=== PATIENT | female | born 1985 | race Caucasian/White ===

== ENCOUNTER → 2018-01-10 | Outpatient (CLI) | payer BC ==
[2018-01-10 13:34] LABS: HCT 33.7 % (34.0-46.0); MCHC 35.7 g/dL (31.0-37.0); MCV 92.3 fL (80.0-100.0); Mean Platelet Volume 6.8; Platelet Count 238 k/uL (150-450); RBC 3.65 m/uL (3.80-5.40); RDW 13.4 % (11.5-15.5); WBC 9.6 k/uL (3.8-10.6)
== END | disposition home or self-care (01) ==
LOC: LABWHC1 11:52
PROVIDERS: ATTEND Obstetrics & Gynecology
DX: Z34.81 Encounter for supervision of other normal pregnancy, first trimester (principal)
CPT/HCPCS: 36415; 82565; 82947; 85027; 86762; 86780; 86850; 86900; 86901; 87340

== ENCOUNTER → 2018-04-21 | Outpatient (CLI) | payer BC ==
[2018-04-21 09:51] LABS: HCT 27.6 % (34.0-46.0); HGB 9.2 gm/dL (11.4-16.0); MCH 31.6 pg (25.0-35.0); MCHC 33.4 g/dL (31.0-37.0); MCV 94.7 fL (80.0-100.0); Mean Platelet Volume 7.3; Platelet Count 214 k/uL (150-450); RBC 2.91 m/uL (3.80-5.40); RDW 12.5 % (11.5-15.5); WBC 8.1 k/uL (3.8-10.6)
[2018-04-21 17:41] LABS: T4, Free (Free Thyroxine) 0.9 ng/dL (0.80-1.80)
== END | disposition home or self-care (01) ==
LOC: LABWHC1 08:21
PROVIDERS: ATTEND Obstetrics & Gynecology
DX: Z34.82 Encounter for supervision of other normal pregnancy, second trimester (principal)
CPT/HCPCS: 36415; 82950; 84439; 84443; 85027

== ENCOUNTER 2018-07-17 22:39 | Inpatient (IN) | payer BC ==
[2018-07-17] MEDS: LACTATED RINGERS 1,000 ML IV SCH (23:17)
[2018-07-17] MEDS ORDERED: LIDOCAINE 0.5% (PF) 5 MG/ML (50 ML SDV) SQ PRN (23:21)
[2018-07-17] MEDS ORDERED: CARBOPROST TROMETHAMINE 250 MCG/ML 1 ML AMP IM PRN (23:21)
[2018-07-17] MEDS ORDERED: OXYTOCIN 10 UNIT/ML 1 ML VIAL IM PRN (23:21)
[2018-07-17] MEDS ORDERED: TERBUTALINE 1 MG/ML VIAL SQ PRN (23:21)
[2018-07-17] MEDS ORDERED: METHYLERGONOVINE 0.2 MG/ML 1 ML AMP IM PRN (23:21)
[2018-07-17 23:31] VITALS: BMI 26.9
[2018-07-17 23:38] LABS: Basophils % (A) 0 %; Eosinophils # (A) 0.1 k/uL (0-0.7); Eosinophils % (A) 1 %; HCT 30.6 % (34.0-46.0); HGB 10.3 gm/dL (11.4-16.0); Lymphocytes # (A) 1.8 k/uL (1.0-4.8); Lymphocytes % (A) 19 %; MCH 29.9 pg (25.0-35.0); MCHC 33.5 g/dL (31.0-37.0); MCV 89.4 fL (80.0-100.0); Mean Platelet Volume 7.7; Monocytes # (A) 0.7 k/uL (0-1.0); Monocytes % (A) 7 %; Neutrophils # (A) 6.6 k/uL (1.3-7.7); Neutrophils % (A) 70 %; Platelet Count 225 k/uL (150-450); RBC 3.43 m/uL (3.80-5.40); RDW 14.1 % (11.5-15.5); WBC 9.4 k/uL (3.8-10.6)
[2018-07-17] MEDS ORDERED: ROPIVACAINE 5MG/ML 20ML VIAL ONE (23:48)
[2018-07-17] MEDS ORDERED: SODIUM CHLORIDE 0.9% 100 ML BAG ONE (23:48)
[2018-07-17] MEDS ORDERED: fentaNYL (PF) 50 MCG/ML 5 ML AMP ONE (23:48)
--- NOTE | 2018-07-18 01:09 | P.HPOB ---
History of Present Illness H&P Date: 07/18/18 Chief Complaint: Contractions This is a 32-year-old female 4 para 2 with a estimated date of confinement of 07/11/2018, estimated gestational age of 41 weeks, who presents to labor and delivery with complaints of contractions that began last night about 8 PM. She denies any rupture of membranes. care has been with Dr. Tse and has been uncomplicated per patient. labs: GC//Trichomonas-negative Random glucose-81 Hepatitis B surface antigen-negative nonreactive Rubella-immune Syphilis antibody-nonreactive Hemoglobin-12 Blood type-O+ Antibody screen-negative Obstetrical ultrasound-normal anatomy One hour Glucola-101 Group B streptococcus-negative Obstetrical history: . History of 2 vaginal deliveries at term. History of 1 miscarriage. Gynecologic history: History of a cryocautery in 2006 for abnormal Pap smear. Review of Systems Constitutional: Denies chills, Denies fever Eyes: denies blurred vision, denies pain Ears, nose, mouth and throat: Denies headache, Denies sore throat Cardiovascular: Denies chest pain, Denies shortness of breath Respiratory: Denies cough Gastrointestinal: Reports abdominal pain (Irregular contractions) Genitourinary: Reports pelvic pain, Reports Musculoskeletal: Reports low back pain Integumentary: Denies pruritus, Denies rash Neurological: Denies numbness, Denies weakness Psychiatric: Denies anxiety, Denies depression Past Medical History Past Medical History: No Reported History History of Any Multi-Drug Resistant Organisms: None Reported Past Surgical History: Tonsillectomy Additional Past Surgical History / Comment(s): D&C Past Anesthesia/Blood Transfusion Reactions: No Reported Reaction Past Psychological History: No Psychological Hx Reported Smoking Status: Never smoker Past Alcohol Use History: None Reported Past Drug Use History: None Reported - Past Family History Father Family Medical History: Hypertension Medications and Allergies Home Medications Medication Instructions Recorded Confirmed Type Iron 18 mg PO DAILY 08/06/15 08/07/15 History Nbr-Dbgn-Nekpv Acid 1 cap PO DAILY 08/06/15 08/07/15 History [-U Capsule] Allergies Allergy/AdvReac Type Severity Reaction Status Date / Time Sulfa (Sulfonamide Allergy Rash/Hives Verified 07/17/18 23:21 Antibiotics) Exam Osteopathic Statement: *. No significant issues noted on an osteopathic structural exam other than those noted in the History and Physical/Consult. Vital Signs Temp Pulse Resp BP Pulse Ox 07/17/18 23:27 97.4 F L 93 16 124/74 99 Intake and Output 07/17/18 07/17/18 07/18/18 14:59 22:59 06:59 Other: Weight 68.946 kg HEENT: Within normal limits Heart: Regular rate and rhythm Lungs: Clear to auscultation bilaterally Abdomen: Cervix: Initially in triage-4-5 cm/80%/-2 station heart tones: Reactive, category 1 Contractions: Every 1-3 minutes Extremities: Negative Homans Results Result Diagrams: 07/17/18 23:20 Abnormal Lab Results - Last 24 Hours (Table) 07/17/18 Range/Units 23:20 RBC 3.43 L (3.80-5.40) m/uL Hgb 10.3 L (11.4-16.0) gm/dL Hct 30.6 L (34.0-46.0) % Assessment and Plan (1) Post term , 41 weeks Current Visit: Yes Status: Acute Code(s): O48.0 - POST-TERM ; Z3A.41 - 41 WEEKS GESTATION OF SNOMED Code(s): 409980380 Plan: Admission for active labor. Epidural anesthesia. Expectant management.
[2018-07-18] MEDS: LACTATED RINGERS 1,000 ML IV SCH (01:13)
[2018-07-18] MEDS ORDERED: SIMETHICONE 80 MG CHEWABLE PO PRN (02:45)
[2018-07-18] MEDS ORDERED: ZOLPIDEM 5 MG TAB PO PRN (02:45)
[2018-07-18] MEDS ORDERED: OXYTOCIN 20 UNITS/1000 ML NS 1,000 ML IV SCH (02:45)
[2018-07-18] MEDS ORDERED: diphenhydrAMINE 50 MG/ML 1 ML VIAL IVP PRN ×2 (02:45)
[2018-07-18] MEDS ORDERED: LANOLIN CREAM 5 GM TUBE TOPICAL PRN (02:45)
[2018-07-18] MEDS ORDERED: BENZOCAINE/MENTHOL SPRAY 1 GM/SPRAY AEROSOL TOPICAL PRN (02:45)
[2018-07-18] MEDS ORDERED: HYDROCORTISONE 2.5% RECTAL CREAM 30 GM TUBE RECTAL PRN (02:45)
[2018-07-18] MEDS ORDERED: diphenhydrAMINE 50 MG CAP PO PRN (02:45)
[2018-07-18] MEDS ORDERED: diphenhydrAMINE 25 MG CAP PO PRN (02:45)
[2018-07-18] MEDS ORDERED: WITCH HAZEL 1 EACH MED..PAD TOPICAL PRN (02:45)
[2018-07-18] MEDS: IBUPROFEN 600 MG TAB PO PRN ×4 (05:51→23:33)
[2018-07-18] MEDS: ACETAMINOPHEN TAB 325 MG TAB PO PRN ×3 (08:09→19:47)
[2018-07-18] MEDS: SENNOSIDES-DOCUSATE SODIUM 1 EACH TAB PO SCH ×2 (08:10→22:07)
--- NOTE | 2018-07-18 08:34 | P.PROBDLV ---
Vaginal Delivery Note - . Vaginal Delivery Note: The patient progressed to complete dilation after artificial rupture of membranes with meconium noted. She did receive epidural anesthesia. Once reaching complete, she began pushing. Shortly after starting to push, the heart tones dropped into the 80s and 90s. She was repositioned to her sides in between pushing and given O2. Her epidural was turned off and she was encouraged to continue pushing during contractions. She brought the infant's head to a crown. With one further push, the 's head delivered across the perineum followed by the anterior shoulder. Nose and mouth were bulb suctioned at the perineum. No nuchal cord was noted. With one remaining push, the remainder the infant easily delivered and was placed on mother's abdomen. Cord was clamped and cut and was taken to warmer for evaluation. A viable female was noted with scores of 9 at 1 minute and 9 at 5 minutes and infant weight of 8 lbs. 13 oz. Placenta delivered shortly thereafter, intact, with a three-vessel cord. Cord blood also was obtained due to O+ blood type. Uterus contracted fairly well after oxytocin was given and uterine massage was carried out. Inspection of the perineum revealed a second-degree perineal laceration. This area was anesthetized with 1% lidocaine and then sutured with 3-0 and 2-0 Vicryl suture in the usual multilayer fashion. Estimated blood loss is approximately 200 mL's. Both mother and are in stable condition.
[2018-07-19 00:29] VITALS: PULSE 81; RESP 16
[2018-07-19] MEDS: ACETAMINOPHEN TAB 325 MG TAB PO PRN ×2 (01:56→07:47)
[2018-07-19] MEDS: IBUPROFEN 600 MG TAB PO PRN (05:48)
[2018-07-19 07:18] LABS: Basophils % (A) 0 %; Eosinophils # (A) 0.1 k/uL (0-0.7); Eosinophils % (A) 1 %; HCT 29.4 % (34.0-46.0); HGB 9.3 gm/dL (11.4-16.0); Lymphocytes # (A) 1.5 k/uL (1.0-4.8); Lymphocytes % (A) 21 %; MCH 29.3 pg (25.0-35.0); MCHC 31.8 g/dL (31.0-37.0); MCV 92.1 fL (80.0-100.0); Mean Platelet Volume 8.1; Monocytes # (A) 0.6 k/uL (0-1.0); Monocytes % (A) 9 %; Neutrophils # (A) 4.8 k/uL (1.3-7.7); Neutrophils % (A) 67 %; Platelet Count 188 k/uL (150-450); RBC 3.19 m/uL (3.80-5.40); RDW 13.9 % (11.5-15.5); WBC 7.3 k/uL (3.8-10.6)
[2018-07-19] MEDS: SENNOSIDES-DOCUSATE SODIUM 1 EACH TAB PO SCH (07:48)
--- NOTE | 2018-07-19 08:12 | P.DS ---
Providers Date of admission: 07/17/18 23:13 Expected date of discharge: 07/19/18 Attending physician: Alis Tse Primary care physician: Stated None - Discharge Diagnosis(es) (1) Normal vaginal delivery Current Visit: Yes Status: Acute Hospital Course: Patient presented in active labor. She underwent normal vaginal delivery. Her course complicated. She'll be discharged home day #1 in stable condition to follow-up with me in 6 weeks. Plan - Discharge Summary New Discharge Prescriptions: New Ibuprofen [Motrin] 600 mg PO Q6HR PRN #30 tab PRN Reason: Mild Pain Or Fever >= 100.5 No Action Xbw-Octs-Lwaho Acid [-U Capsule] 1 cap PO DAILY Iron 18 mg PO DAILY Discharge Medication List Iron 18 mg PO DAILY 08/06/15 [History] Wmk-Qkjo-Kuzhq Acid [-U Capsule] 1 cap PO DAILY 08/06/15 [Histo ry] Ibuprofen [Motrin] 600 mg PO Q6HR PRN #30 tab 07/19/18 [Rx] Follow up Appointment(s)/Referral(s): Alis Tse DO [Doctor of Osteopathic Medicine] - 6 Weeks Discharge Disposition: HOME SELF-CARE
[2018-07-19 16:01] VITALS: BP 102/61; TEMP 98.1
== END 2018-07-19 11:04 | disposition home or self-care (01) | DRG 807 ==
LOC: FBPOP 22:39 → 4FBP 23:13
PROVIDERS: ADMIT Obstetrics & Gynecology; ATTEND Obstetrics & Gynecology
PROC: 10E0XZZ Delivery of Products of Conception, External Approach (ICD-10-PCS; principal; 2018-07-18)
PROC: 0KQM0ZZ Repair Perineum Muscle, Open Approach (ICD-10-PCS; 2018-07-18)
PROC: 10907ZC Drainage of Amniotic Fluid, Therapeutic from Products of Conception, Via Natural or Artificial Opening (ICD-10-PCS; 2018-07-18)
PROC: 00HU33Z Insertion of Infusion Device into Spinal Canal, Percutaneous Approach (ICD-10-PCS; 2018-07-18)
PROC: 3E0R3BZ Introduction of Anesthetic Agent into Spinal Canal, Percutaneous Approach (ICD-10-PCS; 2018-07-18)
DX: O48.0 Post-term pregnancy (principal); Z37.0 Single live birth; O77.0 Labor and delivery complicated by meconium in amniotic fluid; O70.1 Second degree perineal laceration during delivery; Z3A.41 41 weeks gestation of pregnancy; Z82.49 Family history of ischemic heart disease and other diseases of the circulatory system; Z90.89 Acquired absence of other organs; Z88.2 Allergy status to sulfonamides
CPT/HCPCS: 85025; 86850; 86900; 86901; 88307

== ENCOUNTER → 2021-01-06 | Outpatient (CLI) | payer BC ==
--- NOTE | 2021-01-07 11:55 | MM ---
Reason for exam: screening (asymptomatic). Baseline mammogram. History: Took hormonal contraceptives beginning at age 15. Physical Findings: Nurse did not find any significant physical abnormalities on exam. MG 3D Screening Mammo W/Cad Bilateral CC and MLO view(s) were taken. The breast tissue is heterogeneously dense. This may lower the sensitivity of mammography. There is no discrete abnormality. ASSESSMENT: Benign, BI-RAD 2 RECOMMENDATION: Routine screening mammogram of both breasts in 1 year.
== END | disposition home or self-care (01) ==
LOC: RADMAMWWP 10:07
PROVIDERS: ATTEND Obstetrics & Gynecology
DX: Z12.31 Encounter for screening mammogram for malignant neoplasm of breast (principal)
CPT/HCPCS: 77063; 77067